=== PATIENT | female | born 1970 | race Caucasian/White ===

== ENCOUNTER 2025-02-01 18:23 | Emergency (ER) | payer BC, OTHER ==
[~2025-02-01] VITALS: Ht 154.9 cm; Wt 72.8 kg
--- NOTE | 2025-02-01 18:34 | ED.PDOC ---
Back pain HPI HPI Comments PATIENT CAME IN DUE TO LEFT FOOT PAIN AND SWELLING X 2 WEEKS. DENIES ANY FALL OR INJURY. Chief Complaint: Lower Extremity Time Seen by MD: 18:32 Reviewed Notes: Nurses Notes, Medications, Allergies Allergies: Coded Allergies: Cefepime (Verified Allergy, Unknown, 02/01/25) Ceftriaxone (Verified Allergy, Unknown, 02/01/25) Tramadol (Verified Allergy, Unknown, 02/01/25) Information Source: Patient Mode of Arrival: Ambulatory Past Medical History PAST MEDICAL HISTORY: Denies Surgical History: Denies all surgeries [employer] MECH[employer]IC History: No Pertinent [employer] MECH[employer]IC History Constitutional: denies: chills, diaphoresis, fatigue, fever, malaise, sweats, weakness, others EENTM: denies: blurred vision, double vision, ear bleeding, ear discharge, ear drainage, ear pain, ear ringing, eye pain, eye redness, hearing loss, mouth pain, mouth swelling, nasal discharge, nose bleeding, nose congestion, nose pain, photophobia, tearing, throat pain, throat swelling, voice changes, others Respiratory: denies: cough, hemoptysis, orthopnea, SOB at rest, shortness of breath, SOB with excertion, stridor, wheezing, others Cardiovascular: denies: chest pain, dizzy spells, diaphoresis, Dyspnea on exertion, edema, irregular heart beat, left arm pain, lightheadedness, palpitations, PND, syncope, others Gastrointestinal: denies: abdomen distended, abdominal pain, blood streaked bowels, constipated, diarrhea, dysphagia, difficulty swallowing, hematemesis, melena, nausea, poor appetite, poor fluid intake, rectal bleeding, rectal pain, vomiting, others Genitourinary: denies: abnormal vagina bleeding, burning, dyspareunia, dysuria, flank pain, frequency, hematuria, incontinence, pain, , vagina discharge, urgency, others Neurological: denies: dizziness, fainting, headache, left sided numbness, left sided weakness, numbness, paresthesia, pre-existing deficit, right sided numbness, right sided weakness, seizure, speech problems, tingling, tremors, weakness, others Musculoskeletal: reports: others (left foot pain and swelling ); denies: back pain, gout, joint pain, joint swelling, muscle pain, muscle stiffness, neck pain Integumetry: denies: bruises, change in color, change in hair/nails, dryness, laceration, lesions, lumps, rash, wounds, others Allergic/Immunocompromised: denies: Difficulty Healing, Frequent Infections, Hives, Itching, others Hematologic/Lymphatic: denies: anemia, blood clots, easy bleeding, easy bruising, swollen glands, others Endocrine: denies: excessive hunger, excessive sweating, excessive thirst, excessive urination, flushing, intolerance to cold, intolerance to heat, unexplained weight gain, unexplained weight loss, others Psychiatric: denies: anxiety, bipolar disorder, depression, hopeless, panic disorder, schizophrenia, sleepless, suicidal, others Physical Exam General Appearance: No Apparent Distress, Normal HEENT: Pharynx Normal Neck: Full Range of Motion Respiratory: Lungs Clear, No Respiratory Distress, Normal Breath Sounds Cardiovascular: No Murmur, Normal Peripheral Pulses, Regular Rate/Rhythm Breast Exam: Deferred Gastrointestinal: Non Tender, Soft Genitalia: Deferred Pelvic: Deferred Rectal: Deferred Extremities: No calf tenderness, Normal capillary refill, Normal inspection, Normal range of motion, Non-tender, No pedal edema Musculoskeletal : Location: Left Extremity Location: Foot (Tenderness trace edema lateral and medial aspect of left foot no noted visible external trauma strength sensory motion intact positive pedal pulse) Apperance: Normal Neurologic: Alert, No Motor Deficits, Normal Affect, Normal Mood, No Sensory Deficits Cerebellar Function: Normal Reflexes: NOT DONE Skin: Dry, Normal Color, Warm Lymphatic: No Adenopathy Was a procedure done? Was a procedure done?: No Back Pain Differential Dx Differential Diagnosis: Fracture, Musculoskeletal Pain, Strain X-Ray, Labs, Meds, VS Vital Signs Date Time Temp Pulse Resp B/P (MAP) Pulse Ox O2 Delivery O2 Flow Rate FiO2 02/01/25 18:54 103 16 95 Room Air 02/01/25 18:54 98.7 103 16 113/69 (84) 95 98.7 02/01/25 18:26 98.4 110 20 127/73 95 98.4 Current Medications Medications (Trade) Dose Ordered Sig/Sherice Route Start Time Stop Time Status Last Admin Acetaminophen/ Hydrocodone Bitart (Hext 5/325MG Tab) 1 tab ONCE ONCE PO 02/01/25 18:45 02/01/25 18:46 DC 02/01/25 18:53 X-Ray, Labs, Meds, VS Comment FOOTIMPRESSION: No acute fracture or dislocation. 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 : Likely secondary to arthritis and bone spur. Placed in ortho boot. Script trial of Medrol Dosepak advised to follow up with her PCP consider referral to ortho foot and ankle if symptoms persist. Return precautions discussed patient indicates understanding agrees with discharge plan of care. Time of 1ST Reevaluation: 18:41 Reevaluation 1ST: Unchanged Time of 2ND Reevaluation: 19:37 Reevaluation 2ND: Improved Patient Education/Counseling: Diagnosis, Treatment, Prognosis, Need For Follow Up Family Education/Counseling: Diagnosis, Treatment, Prognosis, Need For Follow Up SEPSIS Sepsis Screen Date sepsis recognized/suspect: Feb 01, 2025 Time Sepsis recognized/suspect: 1827 Recent Procedure: No On Antibiotic Therapy: No Respiratory Rate >20: No Heart Rate >90: Yes Temp<36 C (96.8 F) or >38.3 C: No SBP <90 or MAP <65 mmHG: No New Acute Mental Status Change: No Is the patient on CPAP, BIPAP,: No Physician Orders L Foot 3 View Xray (02/01/25 18:41) Splints (02/01/25 ) Vital Signs Date Time Temp Pulse Resp B/P (MAP) Pulse Ox O2 Delivery O2 Flow Rate FiO2 02/01/25 18:54 103 16 95 Room Air 02/01/25 18:54 98.7 103 16 113/69 (84) 95 98.7 02/01/25 18:26 98.4 110 20 127/73 95 98.4 Medications Medications Dose Ordered Sig/Sherice Route Start Time Stop Time Status Last Admin Dose Admin Acetaminophen/ Hydrocodone Bitart 1 tab ONCE ONCE PO 02/01/25 18:45 02/01/25 18:46 DC 02/01/25 18:53 Departure 1 Departure Time of Disposition: 19:39 Impression: Primary Impression: Arthritis of metatarsophalangeal (MTP) joint of great toe Disposition: 01 HOME / SELF CARE / HOMELESS Condition: Stable e-Prescriptions Methylprednisolone (Medrol Dosepak) 4 Mg Jun 4 MG PO UD for 6 Days, #21 TAB UAD Prov: INGRID WALTER 02/02/25 Discharged With: Spouse Critical Care Note Critical Care Time?: No Stability Stability form required: No INGRID WALTER [employer] Feb 01, 2025 18:34
[2025-02-01] MEDS: HYDROcodone-ACET 5/325MG TAB PO ONE (18:53)
[2025-02-01 18:54] VITALS: BP 113/69; PULSE 103; RESP 16; TEMP 98.7; O2SAT 95
--- NOTE | 2025-02-01 19:33 | DVH ---
EXAM: XY L FOOT 3 VIEW XRAY REASON FOR EXAM: pain and swelling TECHNIQUE: AP, lateral, and oblique views of the left foot are submitted for review. COMPARISON: None FINDINGS: There is mild demineralization of the bones. There is no acute fracture or dislocation. The re is severe narrowing of the 1st metatarsophalangeal joint with periarticular sclerosis. The soft ti ssues are grossly unremarkable. There is a small plantar calcaneal spur. IMPRESSION: No acute fracture or dislocation. 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
[2025-02-02] MEDS ORDERED: METH4PAK PO (02:46)
== END 2025-02-01 20:09 | disposition home or self-care (01) ==
LOC: EEVIPCON 18:23 → ER 18:23
DX: M19.072 Primary osteoarthritis, left ankle and foot (principal); Z88.5 Allergy status to narcotic agent; Z88.1 Allergy status to other antibiotic agents
CPT/HCPCS: 73630